=== PATIENT | male | born 1970 | race Caucasian/White ===

== ENCOUNTER → 2017-02-20 | Outpatient (CLI) | payer OTHER ==
[~2017-02-20] MED LIST: PRINIVIL40 MG PO; PROZAC10 MG PO
== END | disposition home or self-care (01) ==
LOC: RAD 09:46
DX: R07.81 Pleurodynia (principal); I10 Essential (primary) hypertension; F17.200 Nicotine dependence, unspecified, uncomplicated; W19.XXXA Unspecified fall, initial encounter

== ENCOUNTER → 2017-03-05 | Outpatient (CLI) | payer OTHER ==
[2017-03-05 13:58] LABS: BASO % 0.3 % (0.0-1.0); EOS # 0.3 10*3/uL (0.0-0.4); HEMATOCRIT 47.7 % (42.0-52.0); IG # 0.1 10*3/uL (0.0-0.1); LYMPH % 22.4 % (27.0-41.0); MEAN CELL VOLUME 87.4 fl (80.0-94.0); MEAN CORPUSCULAR HGB 29.3 pg (27.0-31.0); MEAN CORPUSCULAR HGB CONC 33.5 g/dl (33.0-37.0); MEAN PLATELET VOLUME 10.8 fl (9.6-12.3); MONO # 0.6 10*3/uL (0.1-1.0); MONO % 6.6 % (3.0-9.0); NEUT # 5.9 10*3/uL (2.3-7.9); NEUT % 67.1 % (47.0-73.0); PLATELET COUNT AUTOMATED 270 10*3/uL (130-400); RED BLOOD COUNT 5.46 10*6/uL (4.50-5.90); WHITE BLOOD COUNT 8.8 10*3/uL (4.8-10.8)
[2017-03-06 13:09] LABS: LYME AB/TOTAL IMMUNOGLOBULINS <0.91 ISR (0.00-0.90)
[2017-03-06 14:06] LABS: ANGIOTENSIN-CONVERTING ENZYME 24 U/L (14-82)
== END | disposition home or self-care (01) ==
LOC: LAB 13:23
PROVIDERS: Orthopaedic Surgery
DX: H44.119 Panuveitis, unspecified eye (principal)

== ENCOUNTER → 2017-03-26 | Outpatient (CLI) | payer OTHER ==
[2017-03-27 08:13] LABS: RHEUMATOID ARTHRITIS FACTOR 177.4 IU/mL (0.0-13.9)
[2017-03-27 15:10] LABS: ANGIOTENSIN-CONVERTING ENZYME 13 U/L (14-82)
== END | disposition home or self-care (01) ==
LOC: LAB 12:02
PROVIDERS: Family Medicine
DX: I10 Essential (primary) hypertension (principal); M79.1 Myalgia; M25.50 Pain in unspecified joint

== ENCOUNTER → 2017-04-09 | Outpatient (CLI) | payer OTHER | END | disposition home or self-care (01) | LOC: LAB 14:35 | DX: M06.9 Rheumatoid arthritis, unspecified (principal) ==

== ENCOUNTER → 2017-04-16 | Outpatient (CLI) | payer OTHER ==
[2017-04-16 11:27] LABS: BUN 15 mg/dl (7-24); EST GLOM FILT AFRICAN AMERICAN > 60 ml/min
== END | disposition home or self-care (01) ==
LOC: LAB 10:58 → CT 11:00
PROVIDERS: Internal Medicine Critical Care Medicine
DX: J84.10 Pulmonary fibrosis, unspecified (principal); R91.8 Other nonspecific abnormal finding of lung field; H53.10 Unspecified subjective visual disturbances; F17.200 Nicotine dependence, unspecified, uncomplicated

== ENCOUNTER → 2017-06-03 | Outpatient (CLI) | payer OTHER ==
[2017-06-03 10:47] LABS: BASO # 0.1 10*3/uL (0.0-0.1); BASO % 0.4 % (0.0-1.0); EOS # 0.4 10*3/uL (0.0-0.4); EOS % 3.6 % (1.0-4.0); HEMATOCRIT 45.5 % (42.0-52.0); HEMOGLOBIN 15.2 g/dl (14.0-18.0); IG # 0.1 10*3/uL (0.0-0.1); LYMPH # 2.6 10*3/uL (1.3-4.4); LYMPH % 21.9 % (27.0-41.0); MEAN CORPUSCULAR HGB 29.1 pg (27.0-31.0); MEAN CORPUSCULAR HGB CONC 33.4 g/dl (33.0-37.0); MEAN PLATELET VOLUME 10.8 fl (9.6-12.3); MONO # 0.8 10*3/uL (0.1-1.0); MONO % 6.9 % (3.0-9.0); NEUT # 7.8 10*3/uL (2.3-7.9); NEUT % 66.1 % (47.0-73.0); PLATELET COUNT AUTOMATED 282 10*3/uL (130-400); RED BLOOD COUNT 5.23 10*6/uL (4.50-5.90); RED CELL DISTRI WIDTH 12.5 % (0-14.5); WHITE BLOOD COUNT 11.8 10*3/uL (4.8-10.8)
[2017-06-03 11:12] LABS: ALBUMIN 3.2 gm/dl (3.1-4.5); ALKALINE PHOSPHATASE 111 U/L (45-117); BILIRUBIN, TOTAL 0.3 mg/dl (0.2-1.0); BUN 10 mg/dl (7-24); CARBON DIOXIDE 32 mmol/L (21-32); CHLORIDE 104 mmol/L (98-107); EST GLOM FILT AFRICAN AMERICAN > 60 ml/min; GLUCOSE 99 mg/dL (65-99); POTASSIUM 3.9 mmol/L (3.5-5.1); SGOT/AST 52 IU/L (3-35); SGPT/ALT 73 U/L (12-78); SODIUM 142 mmol/L (136-145)
== END | disposition home or self-care (01) ==
LOC: LAB 10:05
PROVIDERS: Internal Medicine Critical Care Medicine
DX: D86.0 Sarcoidosis of lung (principal)

== ENCOUNTER 2017-06-23 17:44 | Emergency (ER) | payer OTHER ==
[2017-06-23 18:38] LABS: BASO % 0.1 % (0.0-1.0); EOS % 0.2 % (1.0-4.0); HEMOGLOBIN 14.6 g/dl (14.0-18.0); IG # 0.3 10*3/uL (0.0-0.1); LYMPH # 1.4 10*3/uL (1.3-4.4); LYMPH % 7.5 % (27.0-41.0); MEAN CELL VOLUME 89.4 fl (80.0-94.0); MEAN CORPUSCULAR HGB 29.7 pg (27.0-31.0); MEAN CORPUSCULAR HGB CONC 33.2 g/dl (33.0-37.0); MEAN PLATELET VOLUME 10.1 fl (9.6-12.3); MONO # 0.6 10*3/uL (0.1-1.0); NEUT # 16.3 10*3/uL (2.3-7.9); NEUT % 87.6 % (47.0-73.0); PLATELET COUNT AUTOMATED 233 10*3/uL (130-400); RED BLOOD COUNT 4.92 10*6/uL (4.50-5.90); RED CELL DISTRI WIDTH 13.4 % (0-14.5); WHITE BLOOD COUNT 18.6 10*3/uL (4.8-10.8)
[2017-06-23 18:54] LABS: ALBUMIN 3.5 gm/dl (3.1-4.5); ALKALINE PHOSPHATASE 84 U/L (45-117); BILIRUBIN, TOTAL 0.4 mg/dl (0.2-1.0); BUN 14 mg/dl (7-24); CARBON DIOXIDE 28 mmol/L (21-32); CHLORIDE 105 mmol/L (98-107); EST GLOM FILT AFRICAN AMERICAN > 60 ml/min; GLUCOSE 137 mg/dL (65-99); POTASSIUM 4.1 mmol/L (3.5-5.1); SGOT/AST 11 IU/L (3-35); SGPT/ALT 30 U/L (12-78); SODIUM 139 mmol/L (136-145)
[2017-06-23] MEDS ORDERED: CLINDAMYCIN HC300 MG PO (19:47)
== END 2017-06-23 19:52 | disposition home or self-care (01) ==
LOC: ED 17:44
PROVIDERS: Physician Assistant
DX: L03.313 Cellulitis of chest wall (principal); Z79.899 Other long term (current) drug therapy

== ENCOUNTER → 2017-09-29 | Outpatient (CLI) | payer OTHER ==
[~2017-09-29] MED LIST changes: +CLINDAMYCIN HC300 MG PO
[2017-09-29 10:27] LABS: HEMATOCRIT 44.6 % (42.0-52.0); HEMOGLOBIN 15.2 g/dl (14.0-18.0); MEAN CELL VOLUME 89.9 fl (80.0-94.0); MEAN CORPUSCULAR HGB 30.6 pg (27.0-31.0); MEAN CORPUSCULAR HGB CONC 34.1 g/dl (33.0-37.0); MEAN PLATELET VOLUME 10.2 fl (9.6-12.3); RED BLOOD COUNT 4.96 10*6/uL (4.50-5.90); RED CELL DISTRI WIDTH 13.2 % (0-14.5); WHITE BLOOD COUNT 14.8 10*3/uL (4.8-10.8)
[2017-09-29 10:55] LABS: ALBUMIN 3.3 gm/dl (3.1-4.5); CHLORIDE 105 mmol/L (98-107); POTASSIUM 4.1 mmol/L (3.5-5.1); SGOT/AST 18 IU/L (3-35); SGPT/ALT 28 U/L (12-78); SODIUM 141 mmol/L (136-145); TOTAL PROTEIN 7.3 gm/dL (6.4-8.2)
[2017-09-29 10:59] LABS: ALKALINE PHOSPHATASE 110 U/L (45-117); BUN 9 mg/dl (7-24); CHOLESTEROL 257 mg/dL (<200); HDL CHOLESTEROL 42 mg/dl (40-60); LDL CHOLESTEROL 149 mg/dL (9-159); TRIGLYCERIDES 328 mg/dl (<150); VLDL CHOLESTEROL 66 mg/dL (6-40)
== END | disposition home or self-care (01) ==
LOC: LAB 09:56
PROVIDERS: Family Medicine
DX: I10 Essential (primary) hypertension (principal); D86.9 Sarcoidosis, unspecified; K21.9 Gastro-esophageal reflux disease without esophagitis; E78.00 Pure hypercholesterolemia, unspecified; E55.9 Vitamin D deficiency, unspecified

== ENCOUNTER → 2017-10-23 | Outpatient (CLI) | payer OTHER ==
[2017-10-23 10:20] LABS: BASO % 0.3 % (0.0-1.0); EOS # 0.3 10*3/uL (0.0-0.4); EOS % 2.4 % (1.0-4.0); HEMATOCRIT 43.9 % (42.0-52.0); HEMOGLOBIN 14.8 g/dl (14.0-18.0); LYMPH # 2.4 10*3/uL (1.3-4.4); LYMPH % 18.2 % (27.0-41.0); MEAN CELL VOLUME 88.3 fl (80.0-94.0); MEAN CORPUSCULAR HGB 29.8 pg (27.0-31.0); MEAN CORPUSCULAR HGB CONC 33.7 g/dl (33.0-37.0); MEAN PLATELET VOLUME 10.7 fl (9.6-12.3); MONO # 0.8 10*3/uL (0.1-1.0); MONO % 6.5 % (3.0-9.0); NEUT # 9.3 10*3/uL (2.3-7.9); NEUT % 71.6 % (47.0-73.0); PLATELET COUNT AUTOMATED 288 10*3/uL (130-400); RED BLOOD COUNT 4.97 10*6/uL (4.50-5.90); RED CELL DISTRI WIDTH 12.6 % (0-14.5); WHITE BLOOD COUNT 12.9 10*3/uL (4.8-10.8)
[2017-10-23 10:36] LABS: ALBUMIN 3.4 gm/dl (3.1-4.5); ALKALINE PHOSPHATASE 101 U/L (45-117); BUN 12 mg/dl (7-24); CHLORIDE 107 mmol/L (98-107); POTASSIUM 3.7 mmol/L (3.5-5.1); SGOT/AST 9 IU/L (3-35); SGPT/ALT 18 U/L (12-78); SODIUM 140 mmol/L (136-145); TOTAL PROTEIN 7.1 gm/dL (6.4-8.2)
== END | disposition home or self-care (01) ==
LOC: US 09:30 → LAB 09:32
PROVIDERS: Family Medicine
DX: R10.11 Right upper quadrant pain (principal); D72.829 Elevated white blood cell count, unspecified; M06.9 Rheumatoid arthritis, unspecified

== ENCOUNTER → 2017-11-03 | Outpatient (CLI) | payer OTHER | LOC: NM 09:00 | DX: K80.20 Calculus of gallbladder without cholecystitis without obstruction (principal) ==

== ENCOUNTER 2017-11-11 04:01 | Inpatient (IN) | payer OTHER ==
[~2017-11-11] VITALS: Ht 162.6 cm; Wt 75.5 kg
[2017-11-11] VITALS (8 sets, daily range): BP systolic 120–187; BP diastolic 64–97
--- NOTE | ~2017-11-11 | CON ---
[place], [place] REPORT OF CONSULTATION NAME: ANITA WAHL UNIT #: [id number] ROOM: [facility] DOCTOR: ANITA SUNG MD BIRTHDATE: [birth year] DOS: 11/11/2017 CARDIOLOGY CONSULTATION. The patient is being transferred to the Intensive Care Unit at [facility] in [facility]. CHIEF COMPLAINT: Chest pain. HISTORY OF PRESENT ILLNESS: The patient is a 47-year-old man who has no previous history of heart disease. He has been treated for hypertension. Last summer, he did develop dyspnea and cough and abnormal chest x-ray reportedly prompted an open lung biopsy, which was done at the [facility] in [place]. This was reportedly positive for sarcoidosis. The patient was treated transiently with steroids, but developed abdominal discomfort and there was some concern of acute cholecystitis. Steroids were therefore stopped. The patient was otherwise well without symptoms until about 2:00 this morning. While he was getting ready to go to bed, he developed a variety of symptoms including shortness of breath, nausea and trouble breathing. He developed a substernal chest heaviness with some radiation to the right side of his chest. The pain was slightly pleuritic. He came to the Emergency Room where his initial electrocardiogram showed minimal ST elevation in lead V1, but no other acute changes. Initial troponin levels were normal. He was hospitalized in the intensive care unit. A repeat electrocardiogram showed slightly more ST change in lead V2. His second troponin, which was obtained 3 hours after the first one had increased from less than 0.015-1.270. We were asked to see the patient for a probable non-ST elevation myocardial infarction. The patient is being treated with aspirin, nitrates and anticoagulation. Currently, he is comfortable, although he does still have a slight chest discomfort. PAST MEDICAL HISTORY: Includes: 1. Hypertension. 2. Sarcoidosis proven by open lung biopsy in summer 2016. 3. Abdominal discomfort, possibly due to steroid use. The patient did have a HIDA scan 11/03/2017, which was unremarkable. 4. No previous history of diabetes, hyperlipidemia, myocardial infarction or stroke. 5. History of cigarette abuse. The patient has smoked 1 pack a day for the last 30 years. MEDICATIONS PRIOR TO ADMISSION: Lisinopril 40 mg daily and fluoxetine 10 mg daily p.r.n. ALLERGIES: The patient has no known drug allergies. REVIEW OF SYSTEMS: The patient denies diplopia or loss of vision. He denies lightheadedness or syncope. Denies orthopnea or PND. He has had dyspnea, nausea, and diaphoresis as noted above. He does have an occasional cough. He [place], [place] REPORT OF CONSULTATION NAME: ANITA WAHL UNIT #: [id number] ROOM: [facility] DOCTOR: ANITA SUNG MD BIRTHDATE: [birth year] denies fevers, chills, sweats or recent weight change. He denied pleuritic chest pain prior to last evening. He denies hemoptysis or hematemesis. He denies blood in his stools or urine. He denies any change in bowel or bladder habits. He denies any skin rashes. He denies any peripheral edema. He does have some dyspepsia. He denies claudications. Remainder of the review of systems is negative except as noted above. 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 He states that he is relatively active, but lately, he has been less so because of his abdominal discomfort. PHYSICAL EXAMINATION: GENERAL: The patient is a well-nourished white male who is awake, alert and oriented. VITAL SIGNS: Pulse is 60 and regular, blood pressure is 140/76. He is afebrile. He weighs 75.5 kg and has a body mass index of 28.6. HEENT: Normocephalic, atraumatic. Extraocular muscles are intact. Sclerae are clear. Pupils equal, round and react to light. The oral mucosa is moist. Tongue is midline. NECK: Supple. He has no jugular distention. Carotids are full. I heard no bruits. He had no neck or supraclavicular masses, no thyromegaly. LUNGS: Respirations are unlabored. His chest is clear to auscultation and percussion. He has no presacral edema or chest wall tenderness. He has no rubs. CARDIOVASCULAR: His heart has a regular rhythm. He has a fourth heart sound, but no third heart sound. He has a grade 1/6 holosystolic murmur at the apex. No diastolic murmurs are present. The PMI is not displaced. There is no precordial heave, lift or thrill. ABDOMEN: Soft and normoactive. He does have mild epigastric tenderness, but no mass or rebound. EXTREMITIES: Showed no clubbing, cyanosis or edema. There are no cords or tenderness. He has no Homans sign. Pedal pulses are full and equal bilaterally. LABORATORY DATA: I reviewed his electrocardiograms and as noted above he does have minimal ST coving in leads V1 and V2. He does have a slight T-wave inversion in lead V2, which was not present on admission. He does have T-wave inversion in V1. Hemoglobin is 15.9, hematocrit 46.1. There are 16,300 white cells. INR is 1.0. Sodium is 143, potassium 3.3, BUN 9, creatinine 1.2, GFR is greater than 60. Troponin is elevated as noted above, with his initial troponin of less than 0.015 and repeat 1.270. IMPRESSION: 1. Chest pain with acute elevation in troponin consistent with non-ST elevation myocardial infarction. 2. History of hypertension. 3. History of sarcoidosis proven by lung biopsy summer 2016. PLAN: The patient will be treated with aspirin, nitrates, and a full dose intravenous heparin (unstable angina protocol). I have discussed his case with [place], [place] REPORT OF CONSULTATION NAME: ANITA WAHL UNIT #: [id number] ROOM: [facility] DOCTOR: ANITA SUNG MD BIRTHDATE: [birth year] his primary physician, Dr. Lucinda Kaufman and he has requested that we transfer him to [facility] in [place] for further observation and management. [facility] Cardiology and I thank Dr. Kaufman for asking our advice regarding management of this patient. ANITA SUNG MD CM:CONSTR:REPORT OF CONSULTATION [id number] 11/11/17919 interface
--- NOTE | ~2017-11-11 | WRIGHTHP ---
[place], [place] PATIENT HISTORY AND PHYSICAL EXAM NAME: ANITA WAHL [facility] #: [id number] UNIT #: [id number] ROOM: [facility] DOCTOR: TOYA HOOD MD BIRTHDATE: [birth year] DOS: 11/11/2017 HISTORY OF PRESENT ILLNESS: The patient is 47 years old, not known to me, comes in with complaints of chest pain. The patient states that yesterday he was resting when he developed retrosternal chest pain, radiation to the neck, heaviness and shortness of breath like feeling, so he decided to come into the Emergency Room because he was worried that it was his lung. He denies having any fever, any chills, any cough with sputum production. PAST MEDICAL HISTORY: Significant for: 1. Lung biopsy in 05/2017 at [place] when he was diagnosed with sarcoidosis. He has been under care of Dr. James. 2. Benign hypertension. 3. Mixed hyperlipidemia. MEDICATIONS: Lisinopril and fluoxetine. SOCIAL HISTORY: Smokes about a half a pack to 1 pack of cigarettes a day. Denies using any alcohol. He has history of cocaine usage, but states that he has not used anything for the last 10 years. He lives at home with his . He has 4 children, ages 17-25. He was adopted as a child and does not know his biological parents and he does not have any siblings. PHYSICAL EXAMINATION: GENERAL: He is awake and alert and oriented. VITAL SIGNS: Graphic trend shows a pressure of 140/76, pulse of 61, respirations 12, temperature 97.6. LUNGS: Diminished breath sounds. No wheezes, rales, rhonchi heard. HEART: Regular. ABDOMEN: Obese, soft. EXTREMITIES: Without any edema. LABORATORY DATA: EKG is unremarkable. WBC count is 16.3. Comprehensive, glucose 116, BUN 9, creatinine 1.20, sodium 143, potassium 3.3, chloride 103, bicarbonate 29. Chest x-ray, no acute abnormality. Troponin 1.270. ASSESSMENT AND PLAN: 1. The patient who presents with chest pain, appears to be cardiac in nature. The second set of troponin has gone up significantly, 1.270. The patient is most likely ruling in the non-ST elevation [facility]. The patient has been started on nitrates and Lovenox. Also consultation with Dr. Liz was obtained. I discussed with Dr. Liz this morning. The patient will be transferred to for cardiac catheterization. 2. Sarcoidosis. The patient has been on high dose of steroids and the elevated white cell count could be from that also, could be from the cardiac event which is acute. 3. Benign hypertension, controlled. [place], [place] PATIENT HISTORY AND PHYSICAL EXAM NAME: VISHANITA Prince UNIT #: [id number] ROOM: [facility] DOCTOR: TOYA HOOD MD BIRTHDATE: [birth year] TOYA HOOD MD CM:HISPHYS:PATIENT HISTORY AND PHYSICAL EXAMINATION [id number] TOYA HOOD MD 11/11/17906 interface
[2017-11-11 04:16] LABS: BASO # 0.1 10*3/uL (0.0-0.1); BASO % 0.6 % (0.0-1.0); EOS # 0.4 10*3/uL (0.0-0.4); EOS % 2.3 % (1.0-4.0); HEMATOCRIT 46.1 % (42.0-52.0); HEMOGLOBIN 15.9 g/dl (14.0-18.0); LYMPH # 4.1 10*3/uL (1.3-4.4); LYMPH % 25.3 % (27.0-41.0); MEAN CELL VOLUME 87.1 fl (80.0-94.0); MEAN CORPUSCULAR HGB 30.1 pg (27.0-31.0); MEAN CORPUSCULAR HGB CONC 34.5 g/dl (33.0-37.0); MEAN PLATELET VOLUME 10.5 fl (9.6-12.3); MONO # 1.4 10*3/uL (0.1-1.0); MONO % 8.3 % (3.0-9.0); NEUT # 10.2 10*3/uL (2.3-7.9); NEUT % 62.7 % (47.0-73.0); PLATELET COUNT AUTOMATED 317 10*3/uL (130-400); RED BLOOD COUNT 5.29 10*6/uL (4.50-5.90); RED CELL DISTRI WIDTH 12.7 % (0-14.5); WHITE BLOOD COUNT 16.3 10*3/uL (4.8-10.8)
[2017-11-11 04:26] LABS: ACT PARTIAL THROMBO TIME 25.9 SECONDS (20.8-31.5)
[2017-11-11 04:40] LABS: ALBUMIN 3.8 gm/dl (3.1-4.5); ALKALINE PHOSPHATASE 128 U/L (45-117); BUN 9 mg/dl (7-24); CHLORIDE 103 mmol/L (98-107); POTASSIUM 3.3 mmol/L (3.5-5.1); SGOT/AST 16 IU/L (3-35); SGPT/ALT 20 U/L (12-78); SODIUM 143 mmol/L (136-145); TOTAL PROTEIN 7.7 gm/dL (6.4-8.2)
[2017-11-11 04:41] LABS: TROPONIN I < 0.015 ng/ml (<0.045)
--- NOTE | 2017-11-11 05:07 | NUR ---
CHEST PAIN RELIEVED AFTER SL NITRO.
--- NOTE | 2017-11-11 05:17 | NUR ---
NITRO DRIP INITIATED AT 5MCG/MIN.
--- NOTE | 2017-11-11 05:21 | NUR ---
REPORT TO MARTHA ANDERS IN [facility]U AT THIS TIME. PT STABLE AND READY FOR TRANSPORT.
--- NOTE | 2017-11-11 05:30 | NUR ---
UNABLE TO VERIFY HOME MEDS. PT DOES NOT KNOW. PHARMACY NOT OPEN AT THIS TIME. MED LIST IN [place] THAT WENT HOME WITH HIS .
--- NOTE | 2017-11-11 05:30 | NUR ---
A 47, admitted to ICCU, under the services of TOYA Bull MD with a diagnosis of CHEST PAIN S/LOW RISK OF ACS. Chief complaint is CHEST PAIN. Patient arrived via stretcher from ER. Monitor applied. Initial assessment completed. Vital signs taken and recorded. TOYA BULL MD notified of admission to the unit. Orders received. See assessment for past medical history, medications and allergies. Patient and/or family oriented to unit. [facility] visitation policy reviewed. Clothing/patient valuable form completed. MELECIO YBARRA
--- NOTE | 2017-11-11 06:45 | NUR ---
DR SUNG NOTIFIED OF CONSULT. ORDER FOR STRESS TEST THIS AM.
--- NOTE | 2017-11-11 07:54 | NUR ---
ASSESSMENT DONE AFTER SEN BY DR Fortino WONG. RECEIVED CALL FROM LAB ABOUT ELEVATED TROPONIN, DR BRANNON MADE AWARE - NO NEW ORDERS AT THIS TIME.
--- NOTE | 2017-11-11 08:00 | NUR ---
Mattress Inspector in to talk to patient. Patient states lives at HOME with HIS . There are 5 steps in the home. Physician: DR BRITO Pharmacy: [facility] Home health services: NONE Patient's level of ADLs: INDEPENDENT Patient has working utilities: YES DME: NONE Follow-up physician's appointment after d/c: PREFERS TO MAKE HIS OWN APPT Does patient want to access PORTAL?: Discharge plan HOME. ERIK NORRIS
--- NOTE | 2017-11-11 08:40 | NUR ---
DR HOOD MADE ROUNDS AND SPOKE WITH DR SUNG AND THE DECISION WAS MADE TO TRANSFER TO [facility] FOR POSSIBLE HEART CATH D/T TROPONIN TAKING A JUMP
--- NOTE | 2017-11-11 10:28 | NUR ---
Discharge instructions reviewed with patient/family. Patient receptive and verbalizes understanding. Follow-up care arranged. Written instructions given to patient/family. HERE. AWAITING AMBULNCE FOR TRANSFER DILLON DENSON
--- NOTE | 2017-11-11 11:08 | NUR ---
REPORT CALLED TO CVICU AT [facility] AWAITING AMBULANCE WHICH HAS DELAYED 1 HOUR. SHOULD BE HERE NOW ABOUT NOON.
--- NOTE | 2017-11-11 12:09 | NUR ---
REPORT TO [facility] PRIOR TO TRANSFER
--- NOTE | 2017-11-11 12:10 | NUR ---
PATIENT LEFT WITH [facility] & [facility]PAR[facility] DRIP AT 12 UNIT/KG/HR
--- NOTE | 2017-11-11 12:29 | NUR ---
FAMILY CALLED AFTER STRIPPING THE ROOM. FOUND PATIENTS SWEAT SHIRT & T SHIRT. TOLD IT WOULD BE WITH [facility]. THE HAD PREVIOUSLY STATED THAT SHE HAD EVERYTHING EXCEPT HIS TENNIS SHOES
== END 2017-11-11 12:10 | disposition short-term general hospital (02) | DRG 282 ==
LOC: ED 04:01 → EDHOLD 04:58 → ICCU 04:58
PROVIDERS: Emergency Medicine Emergency Medical Services; ADMIT Internal Medicine
DX: I21.4 Non-ST elevation (NSTEMI) myocardial infarction (principal); D86.9 Sarcoidosis, unspecified; I10 Essential (primary) hypertension; E78.2 Mixed hyperlipidemia; F17.210 Nicotine dependence, cigarettes, uncomplicated; Z79.899 Other long term (current) drug therapy; Z79.52 Long term (current) use of systemic steroids

== ENCOUNTER → 2017-12-01 | Outpatient (CLI) | payer OTHER ==
[2017-12-01 10:29] LABS: ALBUMIN 3.6 gm/dl (3.1-4.5); ALKALINE PHOSPHATASE 92 U/L (45-117); BUN 15 mg/dl (7-24); CHLORIDE 106 mmol/L (98-107); CHOLESTEROL 225 mg/dL (<200); CREATININE 1.23 mg/dL (0.70-1.30); HDL CHOLESTEROL 49 mg/dl (40-60); LDL CHOLESTEROL 148 mg/dL (9-159); POTASSIUM 3.9 mmol/L (3.5-5.1); SGOT/AST 15 IU/L (3-35); SGPT/ALT 26 U/L (12-78); SODIUM 141 mmol/L (136-145); TOTAL PROTEIN 6.9 gm/dL (6.4-8.2); TRIGLYCERIDES 138 mg/dl (<150); VLDL CHOLESTEROL 28 mg/dL (6-40)
[2017-12-01 10:42] LABS: HEMATOCRIT 42.4 % (42.0-52.0); HEMOGLOBIN 14.3 g/dl (14.0-18.0); MEAN CELL VOLUME 86.2 fl (80.0-94.0); MEAN CORPUSCULAR HGB 29.1 pg (27.0-31.0); MEAN CORPUSCULAR HGB CONC 33.7 g/dl (33.0-37.0); MEAN PLATELET VOLUME 10.5 fl (9.6-12.3); RED BLOOD COUNT 4.92 10*6/uL (4.50-5.90); RED CELL DISTRI WIDTH 12.6 % (0-14.5); WHITE BLOOD COUNT 9.7 10*3/uL (4.8-10.8)
== END | disposition home or self-care (01) ==
LOC: LAB 09:45
PROVIDERS: Family Medicine
DX: I25.10 Atherosclerotic heart disease of native coronary artery without angina pectoris (principal); R07.9 Chest pain, unspecified; D86.9 Sarcoidosis, unspecified

== ENCOUNTER → 2017-12-08 | Outpatient (CLI) | payer OTHER | END | disposition home or self-care (01) | LOC: CT 13:00 | DX: D86.9 Sarcoidosis, unspecified (principal); R91.1 Solitary pulmonary nodule; J98.4 Other disorders of lung; S22.31XA Fracture of one rib, right side, initial encounter for closed fracture; X58.XXXA Exposure to other specified factors, initial encounter; Y93.89 Activity, other specified; Y92.89 Other specified places as the place of occurrence of the external cause; Y99.8 Other external cause status; Z87.891 Personal history of nicotine dependence ==

== ENCOUNTER → 2018-04-21 | Outpatient (CLI) | payer OTHER ==
[2018-04-21 09:41] LABS: HEMATOCRIT 45.2 % (42.0-52.0); HEMOGLOBIN 14.3 g/dl (14.0-18.0); MEAN CELL VOLUME 90.6 fl (80.0-94.0); MEAN CORPUSCULAR HGB 28.7 pg (27.0-31.0); MEAN CORPUSCULAR HGB CONC 31.6 g/dl (33.0-37.0); MEAN PLATELET VOLUME 10.3 fl (9.6-12.3); RED BLOOD COUNT 4.99 10*6/uL (4.50-5.90); RED CELL DISTRI WIDTH 13.2 % (0-14.5); WHITE BLOOD COUNT 14.3 10*3/uL (4.8-10.8)
[2018-04-21 09:43] LABS: ALBUMIN 3.1 gm/dl (3.1-4.5); ALKALINE PHOSPHATASE 98 U/L (45-117); BUN 18 mg/dl (7-24); CHLORIDE 106 mmol/L (98-107); CHOLESTEROL 232 mg/dL (<200); CREATININE 1.17 mg/dL (0.70-1.30); HDL CHOLESTEROL 41 mg/dl (40-60); LDL CHOLESTEROL 150 mg/dL (9-159); POTASSIUM 4.1 mmol/L (3.5-5.1); SGOT/AST 12 IU/L (3-35); SGPT/ALT 21 U/L (12-78); SODIUM 140 mmol/L (136-145); TRIGLYCERIDES 204 mg/dl (<150); VLDL CHOLESTEROL 41 mg/dL (6-40)
== END | disposition home or self-care (01) ==
LOC: LAB 08:16
PROVIDERS: Family Medicine
DX: E78.00 Pure hypercholesterolemia, unspecified (principal); I10 Essential (primary) hypertension; D86.9 Sarcoidosis, unspecified; M06.9 Rheumatoid arthritis, unspecified; M25.50 Pain in unspecified joint; R05 Cough; R06.02 Shortness of breath

== ENCOUNTER → 2018-06-10 | Outpatient (CLI) | payer OTHER | END | disposition home or self-care (01) | LOC: RAD 11:30 | DX: M81.8 Other osteoporosis without current pathological fracture (principal) ==

== ENCOUNTER → 2019-01-19 | Outpatient (CLI) | payer OTHER ==
[2019-01-19 12:29] LABS: BASO % 0.3 % (0.0-1.0); EOS % 0.3 % (1.0-4.0); HEMATOCRIT 47.1 % (42.0-52.0); HEMOGLOBIN 15.1 g/dl (14.0-18.0); LYMPH # 2.9 10*3/uL (1.3-4.4); LYMPH % 19.7 % (27.0-41.0); MEAN CELL VOLUME 87.9 fl (80.0-94.0); MEAN CORPUSCULAR HGB 28.2 pg (27.0-31.0); MEAN CORPUSCULAR HGB CONC 32.1 g/dl (33.0-37.0); MEAN PLATELET VOLUME 11.1 fl (9.6-12.3); MONO % 6.8 % (3.0-9.0); NEUT # 10.5 10*3/uL (2.3-7.9); NEUT % 71.3 % (47.0-73.0); PLATELET COUNT AUTOMATED 282 10*3/uL (130-400); RED BLOOD COUNT 5.36 10*6/uL (4.50-5.90); RED CELL DISTRI WIDTH 13.1 % (0-14.5); WHITE BLOOD COUNT 14.8 10*3/uL (4.8-10.8)
[2019-01-19 12:37] LABS: ALBUMIN 3.4 gm/dl (3.1-4.5); ALKALINE PHOSPHATASE 93 U/L (45-117); BUN 9 mg/dl (7-24); CHLORIDE 106 mmol/L (98-107); CREATININE 1.17 mg/dL (0.70-1.30); POTASSIUM 3.8 mmol/L (3.5-5.1); SGOT/AST 8 IU/L (3-35); SGPT/ALT 19 U/L (12-78); SODIUM 143 mmol/L (136-145); TOTAL PROTEIN 7.1 gm/dL (6.4-8.2)
== END | disposition home or self-care (01) ==
LOC: LAB 11:14
PROVIDERS: Internal Medicine Critical Care Medicine
DX: D86.0 Sarcoidosis of lung (principal)

== ENCOUNTER → 2019-05-28 | Outpatient (CLI) | payer OTHER ==
[2019-05-28 10:15] LABS: HEMATOCRIT 44.9 % (42.0-52.0); HEMOGLOBIN 14.9 g/dl (14.0-18.0); MEAN CELL VOLUME 90.9 fl (80.0-94.0); MEAN CORPUSCULAR HGB 30.2 pg (27.0-31.0); MEAN CORPUSCULAR HGB CONC 33.2 g/dl (33.0-37.0); RED BLOOD COUNT 4.94 10*6/uL (4.50-5.90); WHITE BLOOD COUNT 10.4 10*3/uL (4.8-10.8)
[2019-05-28 10:31] LABS: ALBUMIN 3.5 gm/dl (3.1-4.5); ALKALINE PHOSPHATASE 83 U/L (45-117); BUN 15 mg/dl (7-24); CHLORIDE 104 mmol/L (98-107); CREATININE 1.25 mg/dL (0.70-1.30); SGOT/AST 10 IU/L (3-35); SGPT/ALT 25 U/L (12-78); SODIUM 140 mmol/L (136-145); TOTAL PROTEIN 7.3 gm/dL (6.4-8.2)
== END | disposition home or self-care (01) ==
LOC: LAB 10:00
PROVIDERS: Family Medicine
DX: R53.83 Other fatigue (principal); B02.9 Zoster without complications

== ENCOUNTER → 2019-12-09 | Outpatient (CLI) | payer OTHER ==
[2019-12-09 11:53] LABS: HEMATOCRIT 47.2 % (42.0-52.0); HEMOGLOBIN 15.2 g/dl (14.0-18.0); MEAN CELL VOLUME 90.8 fl (80.0-94.0); MEAN CORPUSCULAR HGB 29.2 pg (27.0-31.0); MEAN CORPUSCULAR HGB CONC 32.2 g/dl (33.0-37.0); MEAN PLATELET VOLUME 10.3 fl (9.6-12.3); RED BLOOD COUNT 5.2 10*6/uL (4.50-5.90); RED CELL DISTRI WIDTH 13.1 % (0-14.5)
[2019-12-09 12:31] LABS: ALBUMIN 3.5 gm/dl (3.1-4.5); ALKALINE PHOSPHATASE 74 U/L (45-117); BUN 14 mg/dl (7-24); CHLORIDE 108 mmol/L (98-107); CHOLESTEROL 216 mg/dL (<200); CREATININE 1.09 mg/dL (0.70-1.30); HDL CHOLESTEROL 53 mg/dl (40-60); LDL CHOLESTEROL 126 mg/dL (9-159); SGOT/AST 7 IU/L (3-35); SGPT/ALT 16 U/L (12-78); SODIUM 142 mmol/L (136-145); TOTAL PROTEIN 6.7 gm/dL (6.4-8.2); TRIGLYCERIDES 184 mg/dl (<150); VLDL CHOLESTEROL 37 mg/dL (6-40)
== END | disposition home or self-care (01) ==
LOC: LAB 11:35
PROVIDERS: Nurse Practitioner Family
DX: I10 Essential (primary) hypertension (principal); E55.9 Vitamin D deficiency, unspecified; E78.00 Pure hypercholesterolemia, unspecified; R80.9 Proteinuria, unspecified

== ENCOUNTER 2024-01-02 00:26 | Emergency (ER) | payer OTHER ==
[~2024-01-02] VITALS: Ht 162.5 cm; Wt 67.1 kg
[2024-01-02 01:54] LABS: BASO # 0.1 10*3/uL (0.0-0.1); BASO % 0.5 % (0.0-1.0); EOS # 0.2 10*3/uL (0.0-0.4); EOS % 2.1 % (1.0-4.0); HEMATOCRIT 41.7 % (42.0-52.0); LYMPH # 1.9 10*3/uL (1.3-4.4); LYMPH % 17.3 % (27.0-41.0); MEAN CELL VOLUME 90.7 fl (80.0-94.0); MEAN CORPUSCULAR HGB 29.8 pg (27.0-31.0); MEAN CORPUSCULAR HGB CONC 32.9 g/dl (33.0-37.0); MEAN PLATELET VOLUME 9.8 fl (9.6-12.3); MONO # 0.8 10*3/uL (0.1-1.0); MONO % 7.1 % (3.0-9.0); NEUT % 72.2 % (47.0-73.0); PLATELET COUNT AUTOMATED 256 10*3/uL (130-400); RED CELL DISTRI WIDTH 13.2 % (0-14.5); WHITE BLOOD COUNT 11.1 10*3/uL (4.8-10.8)
[2024-01-02 02:11] LABS: ALKALINE PHOSPHATASE 80 U/L (46-116); BUN 10 mg/dl (9-23); CHLORIDE 109 mmol/L (98-107); POTASSIUM 3.5 mmol/L (3.4-5.1); SGPT/ALT 8 U/L (5-49); TOTAL PROTEIN 6.7 gm/dL (6.0-8.0)
== END 2024-01-02 03:39 | disposition home or self-care (01) ==
LOC: ED 00:26
PROVIDERS: Emergency Medicine
DX: I10 Essential (primary) hypertension (principal); Z98.890 Other specified postprocedural states

== ENCOUNTER → 2024-08-20 | Outpatient (CLI) | payer OTHER | END | disposition home or self-care (01) | LOC: US 08:00 | PROVIDERS: ATTEND Family Medicine | DX: R11.2 Nausea with vomiting, unspecified (principal); R10.9 Unspecified abdominal pain; I10 Essential (primary) hypertension ==

== ENCOUNTER 2025-11-23 11:11 | Emergency (ER) | payer OTHER ==
[~2025-11-23] VITALS: Wt 61.7 kg
[2025-11-23] MEDS ORDERED: LORazepam 0.5 MG TAB PO ONE (11:50)
[2025-11-23] MEDS ORDERED: Ondansetron Hydrochloride 4 MG TAB SL ONE (11:50)
== END 2025-11-23 13:00 | disposition home or self-care (01) ==
LOC: ED 11:11
DX: I10 Essential (primary) hypertension (principal); F32.A Depression, unspecified